=== PATIENT | female | born 2000 ===

== ENCOUNTER 2021-12-05 17:22 | Emergency (ER) | payer MEDICAID ==
[2021-12-05 18:27] VITALS: BP 152/94
--- NOTE | 2021-12-05 18:54 | XRay Report ---
. CHEST 2 VIEWS INDICATION: chest pain with hemoptysis. COMPARISON: 09/17/2021 FINDINGS: SUPPORT DEVICES: None. HEART: Within normal limits. LUNGS/PLEURA: No acute air space or interstitial disease. No pneumothorax. ADDITIONAL FINDINGS: None. IMPRESSION: 1. No acute findings. Signer Name: Navdeep Barrett MD Signed: 12/05/2021 6:50 PM Workstation Name: [id number]
[2021-12-05 19:39] LABS: Basophils % (Auto) 0.4 % (0.0-1.8); Eosinophils % (Auto) 0.4 % (0.0-4.3); Hematocrit 38.1 % (30.3-42.9); Hemoglobin 13.2 gm/dl (10.1-14.3); Lymphocytes # (Auto) 2.2 K/mm3 (1.2-5.4); Lymphocytes % (Auto) 23.1 % (13.4-35.0); Mean Corpuscular HGB Conc 35 % (30-34); Mean Corpuscular Volume 84 fl (79-97); Monocytes # (Auto) 0.4 K/mm3 (0.0-0.8); Monocytes % (Auto) 4.7 % (0.0-7.3); Platelet Count 317 K/mm3 (140-440); Red Blood Count 4.55 M/mm3 (3.65-5.03); Red Cell Distribution Width 13.8 % (13.2-15.2)
[2021-12-05 19:49] LABS: INR 0.88 (0.87-1.13)
[2021-12-05 19:50] LABS: Partial Thromboplastin Time 28.7 Sec. (24.2-36.6)
[2021-12-05 20:03] LABS: Alanine Aminotransferase 13 units/L (7-56); Albumin 4.5 g/dL (3.9-5); Blood Urea Nitrogen 7 mg/dL (7-17); Calcium 9.4 mg/dL (8.4-10.2); Hemolysis Index 6
[2021-12-05 20:07] LABS: BUN/Creatinine Ratio 23
[2021-12-06] MEDS ORDERED: methylPREDNISolone Sod Succinate 125 MG/2 ML INJ IM ONE (01:13)
--- NOTE | 2021-12-06 01:19 | Emergency Department Report ---
- General Chief Complaint: Upper Respiratory Infection Stated Complaint: COUGHING BLOOD Source: patient Mode of arrival: Ambulatory Limitations: No Limitations - History of Present Illness Initial Comments: Patient is a 21-year-old -[place] female with no past medical history presents to the ED with complaint of acute onset persistent nasal and sinus congestion, frontal sinus pressure, frontal headache, nosebleed, persistent cough with thick yellowish mucus mixed with specks of blood for the last 3 days. Patient states that she tested positive for COVID-19 viral infection about 3 days ago after yaneli the same from her child and her mother. Patient states that the other family members have tested positive for COVID-19 in the recent week. Patient states that no one in the family received COVID-19 vaccination. Patient denies dizziness, syncope, chest pain or shortness of breath, nausea and vomiting or diarrhea, dysuria, urinary frequency and urgency, change in vision, palpitations or abdominal pain. MD Complaint: cough, rhinorrhea, nasal congestion, sinus pain, other (covid19 positive test 3 days ago) -: Sudden, days(s) (5) Severity: moderate Severity scale (0 -10): 5 Quality: sharp, aching Consistency: constant Improves With: nothing Worsens With: activity Context: sick contacts Associated Symptoms: denies other symptoms, headache, nasal congestion, cough, shortness of breath, epistaxis. denies: fever, chills, myalgias, diaphoresis, sore throat, stiff neck, chest pain, abdominal pain, nausea, vomiting, diarrhea, dysuria, rash, right sweats, weight loss, hoarseness, ear pain, other Treatments Prior to Arrival: "cold medicine" - Related Data Previous Rx's Medication Instructions Recorded Last Taken Type NIFEdipine XL [Procardia Xl] 30 mg PO QDAY #30 tablet 09/19/21 Unknown Rx Acetaminophen [Tylenol] 500 mg PO Q6HR PRN #30 tablet 12/06/21 Unknown Rx Albuterol Sulfate [Proventil Hfa] 1 - 2 puff IH Q6H PRN #1 inh 12/06/21 Unknown Rx Ascorbic Acid [Vitamin C] 1,000 mg PO BID #30 12/06/21 Unknown Rx Benzonatate [Tessalon Perles] 100 mg PO Q8HR #30 cap 12/06/21 Unknown Rx Cetirizine HCl [Zyrtec 10mg tab] 10 mg PO DAILY #30 tab 12/06/21 Unknown Rx Zinc Oxide-Zinc Citrate [Is-Zc 50] 50 mg PO DAILY #30 tab 12/06/21 Unknown Rx Allergies Allergy/AdvReac Type Severity Reaction Status Date / Time No Known Allergies Allergy Verified 09/17/21 20:58 ED Review of Systems ROS: Stated complaint: COUGHING BLOOD Other details as noted in HPI Constitutional: denies: chills, fever Eyes: denies: eye pain, eye discharge, vision change ENT: epistaxis, congestion, other (Frontal sinus pressure). denies: ear pain, throat pain Respiratory: cough. denies: shortness of breath, wheezing Cardiovascular: denies: chest pain, palpitations Endocrine: no symptoms reported Gastrointestinal: denies: abdominal pain, nausea, vomiting, diarrhea Genitourinary: denies: urgency, dysuria, discharge Musculoskeletal: arthralgia, myalgia. denies: back pain, joint swelling Skin: denies: rash, lesions Neurological: headache. denies: weakness, paresthesias Psychiatric: denies: anxiety, depression Hematological/Lymphatic: denies: easy bleeding, easy bruising ED Past Medical Hx - Past Medical History Previous Medical History?: Yes Hx Hypertension: No Hx Diabetes: No Hx Deep Vein Thrombosis: No Hx Renal Disease: No Hx Sickle Cell Disease: No Hx Seizures: No Hx Asthma: No Hx HIV: No Additional medical history: COVID Positive - Surgical History Past Surgical History?: Yes Additional Surgical History: x 2 - Social History Smoking Status: Never Smoker - Medications Home Medications: Home Medications Medication Instructions Recorded Confirmed Last Taken Type NIFEdipine XL [Procardia Xl] 30 mg PO QDAY #30 tablet 09/19/21 Unknown Rx Acetaminophen [Tylenol] 500 mg PO Q6HR PRN #30 tablet 12/06/21 Unknown Rx Albuterol Sulfate [Proventil Hfa] 1 - 2 puff IH Q6H PRN #1 inh 12/06/21 Unknown Rx Ascorbic Acid [Vitamin C] 1,000 mg PO BID #30 12/06/21 Unknown Rx Benzonatate [Tessalon Perles] 100 mg PO Q8HR #30 cap 12/06/21 Unknown Rx Cetirizine HCl [Zyrtec 10mg tab] 10 mg PO DAILY #30 tab 12/06/21 Unknown Rx Zinc Oxide-Zinc Citrate [Is-Zc 50] 50 mg PO DAILY #30 tab 12/06/21 Unknown Rx ED Physical Exam - General Limitations: No Limitations General appearance: alert, in no apparent distress - Head Head exam: Present: atraumatic, normocephalic, normal inspection - Eye Eye exam: Present: normal appearance, PERRL, EOMI Pupils: Present: normal accommodation - ENT ENT exam: Present: normal orophraynx, mucous membranes moist, TM's normal bilaterally, normal external ear exam, other (Grossly congested nasal passages; palpable frontal sinus tenderness) - Neck Neck exam: Present: normal inspection, full ROM. Absent: lymphadenopathy - Respiratory Respiratory exam: Present: normal lung sounds bilaterally. Absent: respiratory distress, wheezes, rales, rhonchi, chest wall tenderness, accessory muscle use, decreased breath sounds - Cardiovascular Cardiovascular Exam: Present: regular rate, normal rhythm, normal heart sounds. Absent: systolic murmur, diastolic murmur, rubs, gallop - GI/Abdominal GI/Abdominal exam: Present: soft, normal bowel sounds. Absent: tenderness, guarding, rebound, hyperactive bowel sounds, hypoactive bowel sounds, organomegaly - Extremities Exam Extremities exam: Present: normal inspection, full ROM, normal capillary refill - Back Exam Back exam: Present: normal inspection, full ROM. Absent: tenderness, CVA tenderness (R), CVA tenderness (L), muscle spasm, paraspinal tenderness, vertebral tenderness - Neurological Exam Neurological exam: Present: alert, oriented X3, CN II-XII intact, normal gait, reflexes normal - Psychiatric Psychiatric exam: Present: normal affect, normal mood - Skin Skin exam: Present: warm, dry, intact, normal color. Absent: rash ED Course Vital Signs 12/05/21 18:26 Temperature 99.5 F Pulse Rate 72 Respiratory 20 Rate Blood Pressure 152/94 [Right] O2 Sat by Pulse 98 Oximetry ED Medical Decision Making - Lab Data Result diagrams: 12/05/21 19:15 12/05/21 19:15 - Radiology Data Radiology results: report reviewed, image reviewed [facility] [address] [place] [address] XRay Report Signed Patient: CHIVO PEGUERO MR#: [id number] : 2000 Acct:[id number] Age/Sex: 21 / F ADM Date: 12/05/21 Loc: ED Attending Dr: Ordering Physician: RICK WELDON MD Date of Service: 12/05/21 Procedure(s): XR chest routine 2V Accession Number(s): [id number] cc: RICK WELDON MD Fluoro Time In Minutes: . CHEST 2 VIEWS INDICATION: chest pain with hemoptysis. COMPARISON: 09/17/2021 FINDINGS: SUPPORT DEVICES: None. HEART: Within normal limits. LUNGS/PLEURA: No acute air space or interstitial disease. No pneumothorax. ADDITIONAL FINDINGS: None. IMPRESSION: 1. No acute findings. Signer Name: Navdeep Barrett MD Signed: 12/05/2021 6:50 PM Workstation Name: [id number] Transcribed By: STACIE Dictated By: Navdeep Barrett MD Electronically Authenticated By: Navdeep Barrett MD Signed Date/Time: 12/05/211849 DD/ 49 TD/TT: - Medical Decision Making This is a 21-year-old -[place] female with no past medical history presents to the ED with complaint of acute onset persistent nasal and sinus congestion, frontal sinus pressure, frontal headache, nosebleed, persistent cough with thick yellowish mucus mixed with specks of blood for the last 3 days. Patient states that she tested positive for COVID-19 viral infection about 3 days ago after yaneli the same from her child and her mother. Patient states that the other family members have tested positive for COVID-19 in the recent week. Patient states that no one in the family received COVID-19 vaccination. In the ED, patient is alert and oriented x3 and is not in any distress. Patient is hemodynamically stable with oxygen saturation of 98% on room air. Lab test results were reviewed and are all nonactionable except for mild hypokalemia of 3.5 mmol/L. Chest x-ray showed no acute cardiopulmonary abnormalities or pneumonitis. Patient has a prescription of azithromycin at home that was prescribed by her primary care physician but which she has not started taking because she was told at the urgent care clinic that she should not take that medication. Patient was however advised to start taking azithromycin, 12 other prescribed medications and to drink plenty of fluids, and self quarantine at home for 5 days as recommended by the CDC, and to follow-up with her primary care physician in 7 to 10 days for reevaluation or return to the ED immediately if symptoms get worse. - Differential Diagnosis COVID-19; URI; sinusitis; pneumonia; bronchitis; Critical care attestation.: If time is entered above; I have spent that time in minutes in the direct care of this critically ill patient, excluding procedure time. ED Disposition Clinical Impression: Upper respiratory tract infection due to COVID-19 virus, Acute bronchitis due to COVID-19 virus, Acute non-recurrent frontal sinusitis, Acute anterior epistaxis Disposition: 01 HOME / SELF CARE / HOMELESS Is pt being admited?: No Does the pt Need Aspirin: No Condition: Stable Instructions: Acute Bronchitis (ED), Sinusitis, Adult, [id number], Upper Respiratory Infection, Adult, [id number], Cough, Adult, [id number], Acute Bronchitis, Adult, [id number], Nosebleed, [id number], Acute Bronchitis, Adult Additional Instructions: All lab test results were reviewed and are all nonactionable. Chest x-ray showed no acute cardiopulmonary abnormalities or pneumonitis. Take medications as advised, drink plenty of fluids, start taking the azithromycin antibiotic that was prescribed by your primary care physician. Drink plenty of fluids, self quarantine at home for 5 days as recommended by CDC, follow-up with your primary care physician in 7 to 10 days for reevaluation. Return to the ED immediately if symptoms get worse. Prescriptions: Acetaminophen [Tylenol] 500 mg PO Q6HR PRN #30 tablet PRN Reason: Pain , Severe (7-10) Zinc Oxide-Zinc Citrate [Is-Zc 50] 50 mg PO DAILY #30 tab Albuterol Sulfate [Proventil Hfa] 1 - 2 puff IH Q6H PRN #1 inh PRN Reason: Shortness Of Breath Benzonatate [Tessalon Perles] 100 mg PO Q8HR #30 cap Ascorbic Acid [Vitamin C] 1,000 mg PO BID #30 Cetirizine HCl [Zyrtec 10mg tab] 10 mg PO DAILY #30 tab Referrals: [facility] [Provider Group] - 7-10 days Time of Disposition: 01:24 Print Language: TOGOLESE
== END 2021-12-06 03:50 | disposition home or self-care (01) ==
LOC: ED 17:22
DX: U07.1 COVID-19 (principal); N39.0 Urinary tract infection, site not specified; J01.10 Acute frontal sinusitis, unspecified; J20.8 Acute bronchitis due to other specified organisms; R04.0 Epistaxis; Z98.890 Other specified postprocedural states
CPT/HCPCS: 36415; 71046; 80053; 84484; 85025; 85610; 85730; 93005; 99283